=== PATIENT | female | born 1980 | race Caucasian/White ===

== ENCOUNTER → 2020-06-06 | Outpatient (CLI) | payer MEDICAID ==
[~2020-06-06] MED LIST: ACET-2708 MT; DICL75TA5 MT; GABA-532 PO
== END | disposition home or self-care (01) ==
LOC: LAB 10:00
PROVIDERS: ATTEND Neurological Surgery
DX: Z01.812 Encounter for preprocedural laboratory examination (principal); Z20.822 Contact with and (suspected) exposure to COVID-19
CPT/HCPCS: 87426

== ENCOUNTER 2020-06-09 06:00 | Inpatient (IN) | payer MEDICAID ==
[2020-06-09] VITALS (22 sets, daily range): BP systolic 69–130; BP diastolic 21–99
[~2020-06-09] VITALS: Ht 157.5 cm; Wt 100.7 kg
[~2020-06-09 06:00] MED LIST changes: -ACET-2708 MT; +LACTATED RINGERS 1,000 ML IV SCH
[2020-06-09 07:03] LABS: CLARITY URINE CLOUDY (CLEAR); COLOR URINE YELLOW (YELLOW); KETONES URINE NEGATIVE (NEGATIVE); LEUKOCYTE ESTERASE URINE 3+ (NEGATIVE); NITRITE URINE NEGATIVE (NEGATIVE); OCCULT BLOOD URINE 1+ (NEGATIVE); PROTEIN URINE NEGATIVE (NEGATIVE); SPECIFIC GRAVITY URINE 1.025 (1.005-1.030); UROBILINOGEN URINE 0.2 E.U./dL (0.2-1.0)
[2020-06-09 07:26] LABS: UCG SCREEN NEGATIVE
[2020-06-09] MEDS ORDERED: THROMBIN (BOVINE) 5000 UNITS/VIAL TOP ONE (08:01)
[2020-06-09] MEDS ORDERED: BACITRACIN 50,000 UNITS/VIAL ONE (08:02)
[2020-06-09] MEDS ORDERED: SUCCINYLCHOLINE CHLORIDE 200MG/10ML IV ONE (10:56)
[2020-06-09] MEDS ORDERED: METOCLOPRAMIDE HCL 10MG/2ML VIAL ONE (10:56)
[2020-06-09] MEDS ORDERED: PROPOFOL 200MG/20ML VIAL IV ONE ×2 (10:56→11:21)
[2020-06-09] MEDS ORDERED: DEXAMETHASONE 4MG/ML 1ML VIAL ONE ×2 (10:56→11:27)
[2020-06-09] MEDS ORDERED: NEOSTIGMINE METHYLSULFATE 1MG/ML 10 ML VIAL ONE (10:56)
[2020-06-09] MEDS ORDERED: CEFAZOLIN SODIUM 1000MG/VIAL ONE (10:56)
[2020-06-09] MEDS ORDERED: MIDAZOLAM HCL 2 MG/2 ML VIAL ONE (10:56)
[2020-06-09] MEDS ORDERED: FENTANYL CITRATE/PF 50MCG/ML 2ML VIAL ONE ×3 (10:56→11:30)
[2020-06-09] MEDS ORDERED: SODIUM CHLORIDE 0.9% 10ML VIAL ONE (10:56)
[2020-06-09] MEDS ORDERED: ONDANSETRON HCL 4MG/2ML INJ ONE (10:56)
[2020-06-09] MEDS ORDERED: GLYCOPYRROLATE 0.2 MG/ML 2ML VIAL ONE (10:56)
[2020-06-09] MEDS ORDERED: HYDROCODONE/ACETAMINOPHEN 5/325MG TABLET PO PRN (11:00)
[2020-06-09] MEDS ORDERED: NICARDIPINE 100 MG in SODIUM CHLORIDE 0.9% 60 ML IV PRN (11:00)
[2020-06-09] MEDS ORDERED: ROCURONIUM BROMIDE 10MG/ML VIAL 5ML IV ONE (11:09)
[2020-06-09] MEDS ORDERED: VECURONIUM BROMIDE 10 MG/VIAL IV ONE (11:11)
[2020-06-09] MEDS ORDERED: LABETALOL HCL 5MG/ML VIAL 20ML IV ONE (11:38)
[2020-06-09] MEDS ORDERED: MEPERIDINE HCL/PF 25MG/ML CPJ IV PRN ×2 (13:30)
[2020-06-09] MEDS ORDERED: SODIUM CHLORIDE 0.9% 1,000 ML IV ONE (13:30)
[2020-06-09] MEDS ORDERED: ONDANSETRON HCL 4MG/2ML INJ IV PRN (13:30)
[2020-06-09] MEDS ORDERED: HYDROMORPHONE HCL/PF 2MG/ML CPJ IV PRN (13:30)
[2020-06-09] MEDS ORDERED: CEFAZOLIN SODIUM 1000MG/VIAL IV SCH (14:00)
[2020-06-09] MEDS ORDERED: ACET-2708 MT (14:01)
[2020-06-09] MEDS: HYDROMORPHONE HCL/PF 2MG/ML CPJ IV PRN ×5 (15:54→22:04)
[2020-06-09] MEDS: DEXT 5%/LACTATED RINGERS 1,000 ML IV SCH ×2 (18:02→19:00)
[2020-06-09] MEDS: CEFAZOLIN 1000MG PREMIX 50 ML IV SCH ×2 (21:00→22:00)
[2020-06-09 22:13] LABS: CHLORIDE 109 mEq/L (98-107)
[2020-06-09] MEDS ORDERED: IPRATROPIUM/ALBUTEROL 0.5-3(2.5)MG/3ML NEB HHN PRN (23:30)
[2020-06-10] VITALS (68 sets, daily range): BP systolic 67–145; BP diastolic 37–103
[2020-06-10 00:49] LABS: CHLORIDE 109 mEq/L (98-107)
[2020-06-10] MEDS: DEXT 5%/LACTATED RINGERS 1,000 ML IV SCH ×4 (01:48→22:08)
[2020-06-10] MEDS: ACETAMINOPHEN 325MG TABLET PO PRN ×3 (03:32→20:46)
[2020-06-10 06:00] LABS: BASOPHILS % 0.2 % (0.0-2.0); HEMATOCRIT. 22.6 % (36.0-48.0); HEMOGLOBIN. 7.3 g/dL (12.0-16.0); LYMPHOCYTES % 9.3 % (20.0-50.0); MEAN CORPUSCULAR HEMOGLOBIN 26.8 pg (28.0-32.0); MEAN CORPUSCULAR VOLUME 82.4 fL (81.0-99.0); MEAN PLATELET VOLUME 8.2 fl (7.4-10.4); MONOCYTES % 6.4 % (2.0-8.0); NEUTROPHILS % 84.1 % (40.0-76.0); PLATELET 234 x1000/uL (130-400); RED BLOOD CELL COUNT 2.74 mill/uL (4.2-5.4); RED CELL DISTRIBUTION WIDTH 15.8 % (11.6-14.6)
[2020-06-10 06:14] LABS: CHLORIDE 108 mEq/L (98-107)
[2020-06-10] MEDS: HYDROMORPHONE HCL/PF 2MG/ML CPJ IV PRN ×4 (09:03→20:14)
[2020-06-10 10:51] LABS: TOTAL IRON BINDING CAPACITY 329 ug/dL (250-450)
[2020-06-10] MEDS ORDERED: SODIUM CHLORIDE 0.9% 500 ML IV NR ×2 (11:00→12:00)
[2020-06-10] MEDS: CEFAZOLIN 1000MG PREMIX 50 ML IV SCH ×2 (11:59→20:28)
[2020-06-10 16:35] LABS: FOLIC ACID (FOLATE) SERUM 17.1 ng/mL (>5.38)
[2020-06-10] MEDS ORDERED: DEXTROSE 50% WATER 50ML SYRINGE IV PRN (19:00)
[2020-06-10] MEDS: BLOOD SUGAR DIAGNOSTIC STRIP TEST SCH (20:26)
[2020-06-10] MEDS: INSULIN LISPRO 100 UNITS/ML SUBCUT SCH (20:27)
[2020-06-11] VITALS (34 sets, daily range): BP systolic 96–151; BP diastolic 41–81
[2020-06-11] MEDS: ACETAMINOPHEN 325MG TABLET PO PRN ×3 (01:16→19:51)
[2020-06-11] MEDS: HYDROMORPHONE HCL/PF 2MG/ML CPJ IV PRN ×6 (01:36→20:31)
[2020-06-11] MEDS: DEXT 5%/LACTATED RINGERS 1,000 ML IV SCH ×4 (04:00→23:48)
[2020-06-11 05:54] LABS: BASOPHILS % 0.2 % (0.0-2.0); EOSINOPHILS % 0.2 % (0.0-5.0); HEMATOCRIT. 32.6 % (36.0-48.0); HEMOGLOBIN. 10.7 g/dL (12.0-16.0); LYMPHOCYTES % 21.3 % (20.0-50.0); MEAN CORPUSCULAR HEMOGLOBIN 26.9 pg (28.0-32.0); MEAN CORPUSCULAR VOLUME 82.1 fL (81.0-99.0); MEAN PLATELET VOLUME 8.1 fl (7.4-10.4); MONOCYTES % 8.4 % (2.0-8.0); NEUTROPHILS % 69.9 % (40.0-76.0); PLATELET 246 x1000/uL (130-400); RED BLOOD CELL COUNT 3.97 mill/uL (4.2-5.4); RED CELL DISTRIBUTION WIDTH 16.1 % (11.6-14.6)
[2020-06-11 05:56] LABS: CHLORIDE 107 mEq/L (98-107)
[2020-06-11] MEDS: BLOOD SUGAR DIAGNOSTIC STRIP TEST SCH (06:06)
[2020-06-11] MEDS: INSULIN LISPRO 100 UNITS/ML SUBCUT SCH (06:10)
[2020-06-11] MEDS ORDERED: ONDANSETRON HCL 4MG/2ML INJ IV PRN (09:45)
[2020-06-12] VITALS: BP 113/54
[2020-06-12] MEDS: ACETAMINOPHEN 325MG TABLET PO PRN ×2 (01:20→08:23)
[2020-06-12] MEDS: HYDROMORPHONE HCL/PF 2MG/ML CPJ IV PRN ×5 (01:50→19:44)
[2020-06-12 04:00] VITALS: BP 101/52
[2020-06-12 06:35] LABS: BASOPHILS % 0.4 % (0.0-2.0); EOSINOPHILS % 0.8 % (0.0-5.0); HEMATOCRIT. 31.5 % (36.0-48.0); HEMOGLOBIN. 10.5 g/dL (12.0-16.0); LYMPHOCYTES % 25.4 % (20.0-50.0); MEAN CORPUSCULAR HEMOGLOBIN 27.1 pg (28.0-32.0); MEAN CORPUSCULAR VOLUME 81.4 fL (81.0-99.0); MEAN PLATELET VOLUME 7.8 fl (7.4-10.4); MONOCYTES % 7.9 % (2.0-8.0); NEUTROPHILS % 65.5 % (40.0-76.0); PLATELET 254 x1000/uL (130-400); RED BLOOD CELL COUNT 3.87 mill/uL (4.2-5.4); RED CELL DISTRIBUTION WIDTH 15.8 % (11.6-14.6)
[2020-06-12 06:46] LABS: CHLORIDE 105 mEq/L (98-107)
[2020-06-12] MEDS: DEXT 5%/LACTATED RINGERS 1,000 ML IV SCH ×2 (06:55→14:53)
[2020-06-12 12:00] VITALS: BP 109/67
[2020-06-12 16:00] VITALS: BP 106/65
[2020-06-12 18:29] VITALS: BP 110/41
[2020-06-12 20:00] VITALS: BP 103/51
[2020-06-13] VITALS: BP 125/65
[2020-06-13] MEDS: HYDROMORPHONE HCL/PF 2MG/ML CPJ IV PRN ×2 (00:16→08:14)
[2020-06-13 04:00] VITALS: BP 116/47
[2020-06-13 08:00] VITALS: BP 124/51
[2020-06-13] MEDS ORDERED: POLYETHYLENE GLYCOL 3350 (17GM) 1 DOSE PACK PO SCH (09:45)
[2020-06-13 12:00] VITALS: BP 130/53
[2020-06-13] MEDS: ACETAMINOPHEN 325MG TABLET PO PRN (13:17)
[2020-06-13 15:24] VITALS: BP 130/53
[2020-06-13 16:00] VITALS: BP 125/55
== END 2020-06-13 17:21 | disposition home or self-care (01) | DRG 304 ==
LOC: OR 06:00 → MICUNO 20:23 → 8WST 06-11 13:34
PROVIDERS: ADMIT Internal Medicine; ATTEND Internal Medicine
PROC: 0SG3071 Fusion of Lumbosacral Joint with Autologous Tissue Substitute, Posterior Approach, Posterior Column, Open Approach (ICD-10-PCS; principal; 2020-06-09)
PROC: 0SB40ZZ Excision of Lumbosacral Disc, Open Approach (ICD-10-PCS; 2020-06-09)
PROC: 01NB0ZZ Release Lumbar Nerve, Open Approach (ICD-10-PCS; 2020-06-09)
PROC: 01NR0ZZ Release Sacral Nerve, Open Approach (ICD-10-PCS; 2020-06-09)
PROC: 02HV33Z Insertion of Infusion Device into Superior Vena Cava, Percutaneous Approach (ICD-10-PCS; 2020-06-09)
PROC: B518ZZA Fluoroscopy of Superior Vena Cava, Guidance (ICD-10-PCS; 2020-06-09)
PROC: B548ZZA Ultrasonography of Superior Vena Cava, Guidance (ICD-10-PCS; 2020-06-09)
PROC: 30233N1 Transfusion of Nonautologous Red Blood Cells into Peripheral Vein, Percutaneous Approach (ICD-10-PCS; 2020-06-10)
DX: M51.27 Other intervertebral disc displacement, lumbosacral region (principal); E44.0 Moderate protein-calorie malnutrition; E83.51 Hypocalcemia; Z68.41 Body mass index [BMI] 40.0-44.9, adult; M47.816 Spondylosis without myelopathy or radiculopathy, lumbar region; D50.9 Iron deficiency anemia, unspecified; N39.0 Urinary tract infection, site not specified; E66.9 Obesity, unspecified; G89.29 Other chronic pain
CPT/HCPCS: 36415; 36573; 71045; 72100; 76000; 80048; 80053; 81003; 81025; 82607; 82728; 82746; 82962; 83036; 83540; 83550; 85025; 86850; 86900; 86920; 88304; 88311; 95863; 95925; 95926; 95928; 95929; 97110; 97116; 97162; 97166; 97530; 97535; C1713; C1725; C1769; J0330; J0690; J1100; J1170; J2175; J2250; J2405; J2704; J2710; J2765; J3010; J3490; J7040; J7121; P9016; C1762